=== PATIENT | male | born 1975 | race American Indian/Alaskan Native ===

== ENCOUNTER 2021-11-28 08:00 | Emergency (ER) | payer OTHER ==
[2021-11-28 08:17] VITALS: BP 163/90
[2021-11-28] MEDS ORDERED: KETOROLAC 10 MG TAB PO ONE (10:43)
[2021-11-28] MEDS ORDERED: CYCLOBENZAPRINE 10 MG TAB PO ONE (10:43)
[2021-11-28] MEDS ORDERED: predniSONE 20 MG TAB PO ONE (10:43)
[2021-11-28] MEDS ORDERED: ACETAMINOPHEN W/CODEINE 300-30 MG TAB PO ONE (10:44)
[2021-11-28] MEDS ORDERED: TETANUS,DIPH,PERTUSS(ACELL) VACCINE 0.5 ML SYRINGE IM ONE (10:44)
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
== END 2021-11-28 11:51 | disposition home or self-care (01) ==
LOC: ED 08:00
DX: S60.511A Abrasion of right hand, initial encounter (principal); S30.811A Abrasion of abdominal wall, initial encounter; M54.2 Cervicalgia; M54.50 Low back pain, unspecified; M25.551 Pain in right hip; Z79.899 Other long term (current) drug therapy; V87.7XXA Person injured in collision between other specified motor vehicles (traffic), initial encounter; Y93.89 Activity, other specified; Y92.488 Other paved roadways as the place of occurrence of the external cause; Y99.8 Other external cause status
CPT/HCPCS: 71046; 90715; 99283